=== PATIENT | female | born 1975 | race Caucasian/White ===

== ENCOUNTER 2016-07-03 21:20 | Emergency (ER) | payer BC ==
[~2016-07-03] VITALS: Ht 162.6 cm; Wt 54.4 kg
[2016-07-03 21:35] VITALS: BP 121/76
== END 2016-07-03 21:50 | disposition home or self-care (01) ==
LOC: ER 21:22
DX: S01.01XD Laceration without foreign body of scalp, subsequent encounter (principal); X58.XXXD Exposure to other specified factors, subsequent encounter
CPT/HCPCS: 99283; A4606; Z7610